=== PATIENT | female | born 1950 | race Caucasian/White ===

== ENCOUNTER 2017-06-08 09:05 | Outpatient (CLI) | payer MEDICARE, OTHER ==
--- NOTE | 2017-06-08 15:38 | Diagnostic Imaging Report ---
ALAN DEE [facility] [address] [facility] [address] [place], [place]. [address] Report Submission Date: Jun 08, 2017 10:11:26 AM VISUAL MERCHANDISING SPECIALIST Patient Study Name: YASMANI JIANG Date: Jun 08, 2017 9:12:40 AM VISUAL MERCHANDISING SPECIALIST Modality Type: CT\SR Gender: F Description: CT BRAIN W/O CONTRAST : 50 Institution: [facility] Physician: ALAN DEE - ELIZ Examination: CT head without contrast History: Lung carcinoma. Brain metastases. Comparison exam: None available Technique: Noncontrast head CT protocol. Findings: Within the right frontal lobe is a large area of abnormal attenuation measuring approximately 4.4 x 3.4 x 4.3 cm. Along the lateral margin is what appears to be some fluid characteristics. Structure crosses the anterior midline. Impression upon the anterior horn of the right lateral ventricle. Shift of the anterior midline to the left by approximately 5.6 mm. Remainder of the cerebrocerebellar parenchyma demonstrates periventricular low attenuation consistent with small vessel disease. No evidence for parenchymal hemorrhage. No extra axial fluid collections. Partial visualization of the paranasal sinuses , mastoid air cells, orbits, skull and scalp without gross regularity. Streak artifact from dental hardware. Impression: Large high attenuation lesion right frontal lobe with extension across the midline. Central cyst versus necrosis. Patient with history of lung carcinoma and findings most likely represent metastasis. Exam was performed without contrast which limits sensitivity for subtle lesions. Consider post contrast imaging or obtaining MRI brain with contrast to further evaluate if clinically warranted. Discussed findings with Dr. Dee at 1010 hours on 08 June 2017 Electronically signed on Jun 08, 2017 10:11:26 AM VISUAL MERCHANDISING SPECIALIST by: Jaspreet HOLMAN
--- NOTE | 2017-06-08 15:38 | Diagnostic Imaging Report ---
ALAN DEE [facility] [address] [facility] [address] [place], [place]. [address] Report Submission Date: Jun 08, 2017 10:24:57 AM REEL FILM INSPECTOR Patient Study Name: YASMANI JIANG Date: Jun 08, 2017 9:18:44 AM REEL FILM INSPECTOR Modality Type: CT\SR Gender: F Description: CT CHEST W/O CONTRAST : 50 Institution: [facility] Physician: ALAN DEE Examination: CT chest History: Lung carcinoma Comparison exams: None available Technique: CT chest without contrast protocol Findings: Exam performed without IV contrast limiting sensitivity. Within the upper anterior mediastinal is a large mass measuring 10.9 x 5.4 x 8.5 cm. Mass appears to encase the anterior margin of the aortic arch. Displacement of the trachea to the right by 1.5 cm. Fullness involving the hilar regions though no discrete separate lesion can be determined. Large left pleural effusion. Thoracic aorta demonstrates peripheral atherosclerotic disease without overt aneurysmal dilation. Cardiac silhouette not enlarged with fluid/thickening involving the anterior pericardial region. Left lung demonstrates compressive atelectasis. Right lung with parenchymal scarring. No obvious right pleural effusion. Osseous structures demonstrate degenerative changes. No obvious lytic or blastic foci. Upper abdominal ascites. Mild nodularity to the hepatic margin. Prominence of the liver and spleen. Impression: Large upper anterior mediastinal mass. Exact margins are difficult to ascertain due to exam technique. Consider obtaining postcontrast imaging or PET scan imaging to further evaluate if clinically warranted. Shift of the trachea to the right however no overt tracheal occlusion. Large left pleural effusion. Adjacent compressive atelectasis. Abdominal ascites associated with hepatosplenomegaly and contour irregularities involving the liver. Correlate with any underlying hepatic process. Discussed findings with Dr. Dee at 1010 hours on 08 June 2017 Electronically signed on Jun 08, 2017 10:24:57 AM REEL FILM INSPECTOR by: Jaspreet HOLMAN
== END 2017-06-08 09:06 ==
LOC: RAD 09:05
PROVIDERS: ATTEND Family Medicine
DX: C34.91 Malignant neoplasm of unspecified part of right bronchus or lung (principal)
CPT/HCPCS: 70450; 71250